=== PATIENT | female | born 1940 | race Caucasian/White ===

== ENCOUNTER → 2016-07-09 | Outpatient (REF) | payer MEDICARE ==
[2016-07-09 16:45] LABS: MEAN CORPUSCULAR HEMOGLOBIN 31.8 pg (27.0-33.0); MEAN CORPUSCULAR HGB CONC 34.9 g/dl (32.0-36.5); MEAN CORPUSCULAR VOLUME 90.9 fl (80.0-96.0); WHITE BLOOD COUNT 5.5 K/mm3 (4.0-10.0)
[2016-07-09 17:06] LABS: ALBUMIN 3.5 GM/DL (3.2-5.2); ALBUMIN/GLOBULIN RATIO 1.13 (1.00-1.93); ALKALINE PHOSPHATASE 82 U/L (45-117); ALT/SGPT 20 U/L (12-78); ANION GAP 7 MEQ/L (8-16); AST/SGOT 14 U/L (15-37); BILIRUBIN,TOTAL 0.4 MG/DL (0.2-1.0); BLOOD UREA NITROGEN 19 MG/DL (7-18); CALCIUM LEVEL 8.3 MG/DL (8.8-10.2); CARBON DIOXIDE LEVEL 29 MEQ/L (21-32); CHLORIDE LEVEL 105 MEQ/L (98-107); CHOLESTEROL LEVEL 195 MG/DL (<200); CREATININE FOR GFR 0.93 MG/DL (0.55-1.02); GLOMERULAR FILTRATION RATE > 60.0 (>39); GLUCOSE, FASTING 83 MG/DL (83-110); POTASSIUM SERUM 3.9 MEQ/L (3.5-5.1); SODIUM LEVEL 141 MEQ/L (136-145); TOTAL PROTEIN 6.6 GM/DL (6.4-8.2); TRIGLYCERIDES LEVEL 169 MG/DL (<150)
== END ==
LOC: M SFHCPLAZ 14:56
PROVIDERS: ATTEND Nurse Practitioner Adult Health
DX: Z00.00 Encounter for general adult medical examination without abnormal findings (principal); Z12.31 Encounter for screening mammogram for malignant neoplasm of breast; Z79.899 Other long term (current) drug therapy

== ENCOUNTER → 2016-08-11 | Outpatient (CLI) | payer MEDICARE ==
--- NOTE | 2016-08-11 14:36 | REPMRS ---
Patient History The patient states she has not had a clinical breast exam in over a year. Patient is postmenopausal and has history of other cancer at age 67. Family history of ovarian cancer in mother, breast cancer in maternal aunt, and breast cancer in paternal aunt. Took estrogen for 3 months. Digital Woman Screen Mammo: August 11, 2016 - Exam #: [id number] Bilateral CC and MLO view(s) were taken. Technologist: Carmencita Carson, Technologist Prior study comparison: October 08, 2014, digital woman screen mammo performed at [facility]. October 07, 2012, digital woman screen mammo performed at [facility] [employer] [facility]. FINDINGS: There are scattered fibroglandular densities. There has been no change in the appearance of the mammogram from the prior studies. There is a mild amount of residual fibroglandular tissue which is fairly symmetric. There is no interval development of dominant mass, architectural distortion, or clustered microcalcification suggestive of malignancy. ASSESSMENT: BI-RADS/ACR category 1 mammogram. Negative. Recommendation Routine screening mammogram in 1 year (for women over age 40). This mammogram was interpreted with the aid of an FDA-approved computer-aided dectection system. Electronically Signed By: Ashish Philip MD 08/11/16 [id number]
== END ==
LOC: M WHC 13:04
PROVIDERS: ATTEND Nurse Practitioner Adult Health
DX: Z12.31 Encounter for screening mammogram for malignant neoplasm of breast (principal); M81.0 Age-related osteoporosis without current pathological fracture; Z78.0 Asymptomatic menopausal state

== ENCOUNTER → 2016-08-18 | Outpatient (REF) | payer MEDICARE | LOC: M LAB REF 16:10 | PROVIDERS: ATTEND Physician Assistant | DX: N39.0 Urinary tract infection, site not specified (principal) ==

== ENCOUNTER → 2017-07-12 | Outpatient (REF) | payer MEDICARE ==
[2017-07-12 18:06] LABS: ALBUMIN 3.7 GM/DL (3.2-5.2); ALBUMIN/GLOBULIN RATIO 1.06 (1.00-1.93); ALKALINE PHOSPHATASE 82 U/L (45-117); ALT/SGPT 19 U/L (12-78); ANION GAP 9 MEQ/L (8-16); AST/SGOT 14 U/L (7-37); BILIRUBIN,TOTAL 0.4 MG/DL (0.2-1.0); BLOOD UREA NITROGEN 14 MG/DL (7-18); CALCIUM LEVEL 8.9 MG/DL (8.8-10.2); CARBON DIOXIDE LEVEL 28 MEQ/L (21-32); CHLORIDE LEVEL 104 MEQ/L (98-107); CHOLESTEROL LEVEL 207 MG/DL (<200); CHOLESTEROL RISK RATIO 3.393 (<5); CREATININE FOR GFR 0.77 MG/DL (0.55-1.30); GLOMERULAR FILTRATION RATE > 60.0 (>39); GLUCOSE, FASTING 78 MG/DL (70-100); HDL CHOLESTEROL 61 MG/DL (>40); LDL CHOLESTEROL 118.8 MG/DL (<100); NON-HDL-C 146 MG/DL; POTASSIUM SERUM 4.5 MEQ/L (3.5-5.1); SODIUM LEVEL 141 MEQ/L (136-145); TOTAL PROTEIN 7.2 GM/DL (6.4-8.2); TRIGLYCERIDES LEVEL 136 MG/DL (<150)
== END ==
LOC: M SFHCPLAZ 16:06
DX: Z00.00 Encounter for general adult medical examination without abnormal findings (principal); I65.23 Occlusion and stenosis of bilateral carotid arteries; Z79.899 Other long term (current) drug therapy
CPT/HCPCS: 84443

== ENCOUNTER → 2017-09-07 | Outpatient (CLI) | payer MEDICARE | LOC: M WHC 14:04 | DX: Z12.31 Encounter for screening mammogram for malignant neoplasm of breast (principal) | CPT/HCPCS: 77067 ==

== ENCOUNTER → 2018-02-18 | Outpatient (REF) | payer MEDICARE ==
[2018-02-18 22:16] LABS: APPEARANCE, URINE CLEAR (CLEAR); BACTERIA, URINE AUTO NEGATIVE (NEGATIVE); BILIRUBIN, URINE AUTO NEGATIVE (NEGATIVE); BLOOD, URINE BLOOD NEGATIVE (NEGATIVE); COLOR, URINE YELLOW (YELLOW); GLUCOSE, URINE (UA) AUTO NEGATIVE (NEGATIVE); KETONE, URINE AUTO NEGATIVE (NEGATIVE); LEUKOCYTE ESTERASE, URINE AUTO TRACE (NEGATIVE); MUCUS, URINE SMALL (NEGATIVE); NITRITE, URINE AUTO NEGATIVE (NEGATIVE); PROTEIN, URINE AUTO NEGATIVE (NEGATIVE); RBC, URINE AUTO 2 /HPF (0-3); SPECIFIC GRAVITY URINE AUTO 1.012 (1.002-1.035); SQUAMOUS EPITHELIAL CELL UR AU 0 /HPF (0-6); UROBILINOGEN, URINE AUTO 0.2 mg/dL (0.0-2.0); WBC, URINE AUTO 2 /HPF (0-3)
== END ==
LOC: M LAB REF 10:18
DX: N39.0 Urinary tract infection, site not specified (principal)
CPT/HCPCS: 81001

== ENCOUNTER 2018-03-03 14:03 | Emergency (ER) | payer MEDICARE ==
[2018-03-03] MEDS: FLUORESCEIN OPHTH 1 MG STRIP OD (15:38)
[2018-03-03] MEDS: TETRACAINE 0.5% OPHTH SOLN 4ML OD (15:38)
== END 2018-03-03 16:08 | disposition home or self-care (01) ==
LOC: M ED 14:03
DX: S05.01XA Injury of conjunctiva and corneal abrasion without foreign body, right eye, initial encounter (principal); Y99.9 Unspecified external cause status
CPT/HCPCS: 99283

== ENCOUNTER → 2018-12-05 | Outpatient (CLI) | payer MEDICARE ==
[~2018-12-05] MED LIST: OFLO3OPSO OD
--- NOTE | 2018-12-05 16:00 | REPMRS ---
Patient History The patient states she has not had a clinical breast exam in over a year. Patient is postmenopausal and has history of other cancer at age 67. Family history of ovarian cancer in mother, breast cancer in maternal aunt, breast cancer in paternal aunt. Took estrogen for 3 months. 3D TOMOSYNTHESIS WAS PERFORMED. The [facility] lifetime risk for breast cancer is 2.7%. Digital Woman Screen Mammo: December 05, 2018 - Exam #: [id number] Bilateral CC and MLO view(s) were taken. Technologist: Muriel Boston Technologist Prior study comparison: September 07, 2017, bilateral digital woman screen mammo performed at [facility]. August 11, 2016, digital woman screen mammo performed at [facility]. FINDINGS: There are scattered fibroglandular densities. There has been no change in the appearance of the mammogram from the prior studies. There is a mild amount of residual fibroglandular tissue which is fairly symmetric. There is no interval development of dominant mass, architectural distortion, or clustered microcalcification suggestive of malignancy. Assessment: BI-RADS/ACR category 1 mammogram. Negative Mammogram. Recommendation Routine screening mammogram in 1 year (for women over age 40). This mammogram was interpreted with the aid of an FDA-approved computer-aided dectection system. Electronically Signed By: Ashish Philip MD 12/05/18 1600
== END ==
LOC: M WHC 13:06
PROVIDERS: ATTEND Nurse Practitioner Adult Health
DX: Z12.31 Encounter for screening mammogram for malignant neoplasm of breast (principal); Z78.0 Asymptomatic menopausal state

== ENCOUNTER → 2018-12-20 | Outpatient (CLI) | payer MEDICARE ==
[~2018-12-20] MED LIST changes: +CALC600T60 PO; +CHOL400T PO; +VITA-55 PO
[2018-12-20 12:03] LABS: HEMOGLOBIN 13.6 g/dl (12.0-15.5); MEAN CORPUSCULAR HEMOGLOBIN 30.2 pg (27.0-33.0); MEAN CORPUSCULAR HGB CONC 33.2 g/dl (32.0-36.5); MEAN CORPUSCULAR VOLUME 91.1 fl (80.0-96.0); PLATELET COUNT, AUTOMATED 248 10^3/uL (150-450); WHITE BLOOD COUNT 4.7 10^3/uL (4.0-10.0)
[2018-12-20 12:11] LABS: INR 1.07; PROTHROMBIN TIME 13.6 SECONDS (11.8-14.0)
[2018-12-20 12:27] LABS: ERYTHROCYTE SEDIMENTATION RATE 11 mm/hr (0-30)
[2018-12-20 12:33] LABS: ALBUMIN 3.6 GM/DL (3.2-5.2); ALT/SGPT 19 U/L (12-78); BILIRUBIN,TOTAL 0.7 MG/DL (0.2-1.0); BLOOD UREA NITROGEN 17 MG/DL (7-18); CALCIUM LEVEL 9.1 MG/DL (8.8-10.2); CARBON DIOXIDE LEVEL 27 MEQ/L (21-32); CHLORIDE LEVEL 103 MEQ/L (98-107); CREATININE FOR GFR 0.89 MG/DL (0.55-1.30); GLOMERULAR FILTRATION RATE > 60.0 (>39); GLUCOSE, FASTING 117 MG/DL (70-100); POTASSIUM SERUM 4.2 MEQ/L (3.5-5.1); SODIUM LEVEL 139 MEQ/L (136-145); TOTAL PROTEIN 6.7 GM/DL (6.4-8.2)
--- NOTE | 2018-12-20 12:39 | REP ---
The PA and lateral chest: There are no comparisons. The lung dejesus are clear. The cardiac size is normal. The rosalva, mediastinum, and skeletal structures are unremarkable. Impression: Negative PA and lateral chest. Electronically Signed by Ashish Ivey MD 12/20/2018 12:30 P
--- NOTE | 2018-12-21 08:25 | ECGEPIP ---
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
== END ==
LOC: M LAB 11:12
PROVIDERS: ATTEND Orthopaedic Surgery
DX: Z01.818 Encounter for other preprocedural examination (principal); M17.12 Unilateral primary osteoarthritis, left knee

== ENCOUNTER 2019-01-02 05:55 | Inpatient (IN) | payer MEDICARE ==
--- NOTE | 2018-12-27 14:51 | HPE ---
DATE OF ADMISSION: 01/02/2019 CHIEF COMPLAINT: Left knee pain and stiffness. ATTENDING PHYSICIAN: Dr. Donis Darling HISTORY: This is a pleasant 78-year-old female patient with progressively worsening left knee pain and stiffness. She has tried physical therapy and numerous injections without improvement of her symptoms. She has pain with weightbearing activities and activities of daily living. She has elected for surgery for continued symptoms. She has been consented by Dr. Darling for the left total knee arthroplasty. X-rays notable for end-stage degenerative changes of the left knee. Medical optimization Dr. Palacio, not present for review today. ALLERGIES: NO KNOWN DRUG ALLERGIES. CURRENT MEDICATIONS: She takes only [id number] supplements daily with vitamin C, vitamin E and calcium with D. Medical conditions include symptomatic osteoarthritis of the left knee and osteoporosis. PAST SURGERIES: Include multiple skin grafts, total hysterectomy and appendectomy. FAMILY HISTORY: Hypertension, cancer, diabetes, coronary artery disease and thyroid disease. REVIEW OF SYSTEMS: Denies any fever or chills. Denies chest pain, shortness breath or cough. Denies difficulty breathing. Denies abdominal pain. Denies nausea or vomiting. Has persistent pain in her knee with weightbearing activities. SOCIAL HISTORY: She does not smoke. She uses alcohol on an occasional basis. PHYSICAL EXAMINATION: Exam today reveals alert, well-nourished, well-developed female patient. She ambulates with a limping gait, favoring the left side. Examination of the left knee reveals tenderness mainly medially. There is patellar grind that is irritable. Stable to varus-valgus stress. Range of motion near full. Calf is soft, nontender to palpation. There are numerous scars consistent with her surgical history of skin grafts. Sensation is intact. Neck is supple without adenopathy or jugular venous distention (JVD). Lungs are clear to auscultation without rales or wheeze. Heart has regular rate and rhythm. Abdomen: Bowel sounds are present. Current height is 59 inches, weight 130 pounds, temperature is 98.6, blood pressure 120/62, respirations 15, pulse is 63. LABORATORY DATA: PT is 13.6, INR 1.07, sed rate 11, WBC count 4.7, RBC count 4.5, hemoglobin 13.6, hematocrit 41.0, glucose 117, BUN 17, creatinine 0.89, sodium 139, potassium 4.2. Chest x-ray: No acute cardiopulmonary process noted. EKG sinus rhythm. IMPRESSION: Symptomatic osteoarthritis of the left knee. PLAN: She is consented by Dr. Darling for a left total knee arthroplasty. She understands no NSAIDs 5 days prior to surgery, nothing to eat after midnight the day before, she will call on Wednesday to confirm her arrival time for Wednesday.
[~2019-01-02] VITALS: Ht 152.4 cm; Wt 62.6 kg
[2019-01-02] VITALS (7 sets, daily range): BP systolic 122–142; BP diastolic 65–85
[2019-01-02] MEDS ORDERED: LIDOCAINE 1% MDV 20ML VIAL SQ PRN (06:00)
[2019-01-02] MEDS ORDERED: ceFAZolin SOD 2 GM in IV 1 EA IV ONE (07:00)
[2019-01-02] MEDS ORDERED: LR 1,000 ML IV ONE (07:00)
[2019-01-02] MEDS ORDERED: ACETAMINOPHEN 500 MG TAB PO ONE (07:00)
[2019-01-02] MEDS ORDERED: TRANEXAMIC ACID 100 MG/ML 10ML VIAL As Ordered ONE (07:02)
[2019-01-02] MEDS ORDERED: BUPIVACAINE HCL 0.25% 10 ML VIAL As Ordered ONE (07:02)
[2019-01-02] MEDS ORDERED: ceFAZolin 1GM INJ (J0690 PER 500MG) As Ordered ONE (07:02)
[2019-01-02] MEDS ORDERED: EPINEPHrine INJ 1 MG/ML 1ML AMP As Ordered ONE (07:03)
[2019-01-02] MEDS ORDERED: BUPIVACAINE LIPOSOME/PF 1.3% 20ML VIAL (13.3MG/ML)(EXPAREL)(C9290 PER1MG) As Ordered ONE (07:03)
[2019-01-02] MEDS ORDERED: MIDAZOLAM INJ 2 MG/2 ML VIAL (J2250) As Ordered ONE (07:12)
[2019-01-02] MEDS ORDERED: fentaNYL 100 MCG/2 ML INJECTION (J3010) As Ordered ONE ×3 (07:12→09:39)
[2019-01-02] MEDS ORDERED: PROPOFOL 500 MG/50 ML VIAL As Ordered ONE (07:15)
[2019-01-02] MEDS ORDERED: LIDOCAINE 2% INJ 100 MG/5 ML SDV (FOR ANES.) As Ordered ONE (07:16)
[2019-01-02] MEDS ORDERED: dexameTHASONE 4 MG/ML 1ML VIAL (J1100) As Ordered ONE (07:16)
[2019-01-02] MEDS: MIDAZOLAM INJ 2 MG/2 ML VIAL (J2250) IV SCH ×2 (07:19→07:20)
[2019-01-02] MEDS ORDERED: ONDANSETRON 4MG/2ML VIAL (J2405) As Ordered ONE ×2 (08:23→09:39)
[2019-01-02] MEDS: fentaNYL 100 MCG/2 ML INJECTION (J3010) IV PRN ×4 (09:40→09:55)
[2019-01-02] MEDS ORDERED: ACETAMINOPHEN TAB 650MG DOSE (2X325MG) PO PRN (10:00)
[2019-01-02] MEDS ORDERED: FLEET ENEMA PR PRN (10:00)
[2019-01-02] MEDS ORDERED: ONDANSETRON 4MG/2ML VIAL (J2405) IV PRN (10:00)
[2019-01-02] MEDS ORDERED: fentaNYL 100 MCG/2 ML INJECTION (J3010) IV SCH (10:00)
[2019-01-02] MEDS ORDERED: LR 1,000 ML IV SCH ×2 (10:00)
[2019-01-02] MEDS ORDERED: MORPHINE 10 MG/ML 1ML VIAL (J2270) IV PRN (10:00)
[2019-01-02] MEDS ORDERED: HYDROMORPHONE HCL 0.5 MG/ 0.5 ML SYRINGE (J1170 PER 1) IV PRN ×2 (10:15)
--- NOTE | 2019-01-02 10:33 | CR.PDOC ---
General Date of Consultation: Jan 02, 2019 Consultation CONSULT FOR: Orthopedic surgery REASON FOR CONSULT: Medical management HISTORY OF PRESENT ILLNESS: This is a 78-year-old female with minimal past medical history who presents for elective left total knee arthroplasty following failing outpatient management and continued pain without improvement. She is at her risk stratification and preoperative crit work completed at outside provider. She never followed Jennie Thacker. At this time the patient tells me she does not feel well at all she is examined in the PACU telemetry that she has no pain and she is doing quite well. She tells me she only takes her supplements and takes no prescription medications. Otherwise patient denies weight loss, hair loss, headache, visual changes, chest pain, shortness of breath, cough, nausea, vomiting, diarrhea, abdominal pain, muscle aches, worsening arthritis, change in mood PAST MEDICAL HISTORY: 1 diverticulosis. 2 osteoporosis. 3 chronic constipation 4 osteoarthritis. HOME MEDICATIONS: Please see below. ALLERGIES: Please see below PAST SURGICAL HISTORY: 1 hysterectomy. 2 skin graft to her back. 3 appendectomy 4 bilateral cataract extraction 5 appendectomy 6 colonoscopy 7 left arm skin biopsy. SOCIAL HISTORY: Lives with: , Employment: Not currently working, Tobacco use: Denies. ETOH: Denies, Illicit drug use: Denies, CODE STATUS: DNR/DNI with limited medical interventions FAMILY HISTORY:Reviewed and noncontributory REVIEW OF SYSTEMS: 10 systems reviewed and negative other than HPI PHYSICAL EXAMINATION: VITAL SIGNS: Please see below GENERAL: Pleasant elderly female sitting up in bed awake alert oriented speaking in complete sentences no acute distress HEENT: Moist mucous membranes no elevation in CVP CARDIOVASCULAR: S1 S2 regular no additional heart sounds appreciated. RESPIRATORY: Clear to auscultation bilaterally. ABDOMINAL: Bowel sounds present abdomen soft and nontender EXTREMITIES: No clubbing cyanosis or edema, left knee is Issac wrapped bandage to NEUROLOGICAL: Spontaneously moves 3/4 extremities cranial 2 through 12 grossly intact no gross focal deficits appreciated PSYCHOLOGICAL: Appropriate LABORATORY DATA: See below. MICROBIOLOGY: Please see below. IMAGING: Left knee plain film report pending ASSESSMENT & PLAN: This is a 78-year-old female postop day 0 for elective left total knee arthroplasty. PROBLEMS: 1 left total knee arthroplasty: Perioperative management as per orthopedic surgery. We'll defer to them regarding DVT prophylaxis pain control physical therapy. 2 osteoporosis: Restart calcium and vitamin D supplementation is able 3 chronic constipation: She is being provided with a bowel regimen by orthopedic surgery 4. Nutritional supplements: Okay to hold while hospitalized her vitamin E and C DVT PROPHYLAXIS: As per thoracic surgery Thank you for this interesting consult, we will continue to follow along with you. Please Vocera secure text or call with any specific questions. This note was generated in part or whole with a voice recognition software. Vo ice recognition is usually quite accurate but often erros do occur. I apologize for any typographical errors that were not detected and corrected. Vital Signs/I&O Vital Signs Date Time Temp Pulse Resp B/P (MAP) Pulse Ox O2 Delivery O2 Flow Rate FiO2 01/02/19 10:05 56 16 136/81 (99) 96 Room Air 01/02/19 10:01 97.1 01/02/19 07:15 2 Allergies Coded Allergies: No Known Allergies (Unverified , 12/21/18) Home Medications Scheduled Calcium Carbonate (Calcium) 600 Mg Tablet, 600 MG PO DAILY, (Reported) Cholecalciferol (Vitamin D3) (Vitamin D3) 400 Unit Tablet, 400 UNIT PO DAILY, (Reported) Vitamin E (Dl,Tocopheryl Acet) (Vitamin E) 400 Unit Capsule, 400 UNIT PO DAILY, (Reported) GISELLA JANG MD Jan 02, 2019 10:33
--- NOTE | 2019-01-02 10:45 | REP ---
LEFT KNEE, TWO VIEWS: Two views of the left knee performed. There is placement of a total knee prosthesis. Prosthetic components are in good position. The osseous structures are intact and well-aligned. Metallic skin ninfa are seen anterior. Electronically Signed by Ashish Philip MD 01/03/2019 05:31 P
[2019-01-02] MEDS: ceFAZolin SOD 2 GM in IV 1 EA IV SCH ×2 (13:34→19:53)
[2019-01-02] MEDS ORDERED: PERCOCET 5MG/325MG TAB PO PRN (14:15)
[2019-01-02] MEDS ORDERED: LIDOCAINE 1% MDV 20ML VIAL ONE (14:31)
[2019-01-02] MEDS ORDERED: ROPIvacaine 0.5% 30 ML INJECTION (J2795 PER 1MG) ONE (14:31)
[2019-01-02] MEDS ORDERED: dexameTHASONE 10 MG/1 ML VIAL PRES.FREE (J1100) ONE (14:31)
--- NOTE | 2019-01-02 16:29 | RO ---
DATE OF PROCEDURE: 01/02/2019 PREPROCEDURE DIAGNOSIS: Left knee degenerative arthritis. POSTPROCEDURE DIAGNOSIS: Left knee degenerative arthritis. PROCEDURE: Left total knee arthroplasty using a size 4 Attune cemented cruciate-retaining femoral component and a size 4 tibial tray with an 8 mm rotating platform polyethylene insert and a 32 mm polyethylene button. SURGEON: Dr. Kasey Darling SEED PRODUCTION FIELD SUPERVISOR: Ms. Sujata Briones ANESTHESIA: Spinal with left femoral nerve block. The prosthesis was made by [employer]; it was Attune knee. COMPLICATIONS: None. SPECIMENS: Joint surface. DESCRIPTION OF PROCEDURE: Antibiotics were given intravenously preoperatively and successful, left femoral nerve block, and then spinal anesthetic was induced. Tourniquet placed on the left upper thigh and not inflated. The left lower extremity was carefully prepped and draped in the usual sterile fashion, leg elevated, and then the tourniquet inflated after appropriate time out. A longitudinal incision was made for a medial parapatellar approach to the knee. Bovie cautery was used to coagulate crossing vessels. Medial parapatellar arthrotomy performed, subperiosteal dissection around the proximal, medial and lateral tibial plateau was performed and then the knee was flexed. Drill placed down the center of the femoral canal, followed by the intramedullary mica and the distal femoral cutting jig set at 9 mm resection level, 5 degree valgus for a left knee. It was pinned into position. Distal femoral cut performed. AP sizing jig measured for a size 4, 3 degrees external rotation dialed in, pins placed, 4-in-1 block applied. Anterior, posterior, chamfer cuts performed, the jig for the sulcus osteotomy was applied and the sulcus osteotomy performed. We then exposed the proximal tibia and used the extramedullary alignment jig to estimate being parallel to the mechanical axis of the tibia, referencing off the medial tibial condyle at 4 mm resection level. The block was pinned into position, then the extramedullary mica was used to confirm that we appeared to be parallel to the mechanical axis. Thus, the proximal tibial osteotomy was performed. The lamina cook specialty foreign food was then placed laterally, and we performed a completion medial meniscectomy and debridement of the posteromedial osteophytes. We then placed the lamina cook specialty foreign food medially and performed a completion lateral meniscectomy and debridement of the posterolateral osteophytes. We then used several spacer blocks, and the 8 mm seemed to give her the best stability symmetrically both in flexion and extension to varus/valgus stress testing. We then exposed the proximal tibia and sized for a #4 tray, which was pinned into position, followed by the reamer and the broach. Trial was placed. Trial femoral component was placed. We brought the knee into extension, everted the patella, performed a patellar osteotomy, sized for a 32 button. Lug holes drilled, trial placed, patellofemoral tracking was anatomic. We then drilled the lug holes for the femur, removed all of the trial components, copiously pulsatile lavage irrigated out the knee joint and then placed Exparel in the subperiosteal tissues around the proximal tibia and the distal femur. At this point, Dominique Sujata Briones mixed the cement on the back table as I prepared the bony surfaces for cementing with a copious amount of pulsatile lavage irrigant solution. She was critical to the success of this surgery by helping with appropriate soft tissue retraction, helped to mix the cement, and helped to prepare the patient for surgery, helped to close the wound amongst many other tasks. Once the cement had been mixed, we then cemented the tibial tray, removed excess cement, placed the polyethylene, cemented the femoral component, removed excess cement, brought the knee into extension, and then cemented the patellar button, removed excess cement and held it with a clamp until the cement hardened, the knee in extension. And as we were awaiting the cement to harden, we copiously irrigated out the knee joint once again and then placed tranexamic acid in the knee joint, then closed the apex of the arthrotomy with two #1 PDS sutures, the medial parapatellar area was closed with #1 PDS suture, then a double-armed #1 Stratafix was used in a running fashion to close the capsule. Tourniquet was then released. We copiously irrigated again and closed the deep subdermal tissues with interrupted #2-0 PDS suture, skin was closed with ninfa, covered by Optifoam and a dry sterile bulky dressing. She was then transferred to the recovery room in stable condition. There were no intraoperative complications.
[2019-01-02] MEDS: PERCOCET 5MG/325MG TAB PO PRN (22:32)
[2019-01-03] MEDS: ceFAZolin SOD 2 GM in IV 1 EA IV SCH (02:00)
[2019-01-03 02:25] VITALS: BP 116/64
[2019-01-03] MEDS: PERCOCET 5MG/325MG TAB PO PRN ×3 (02:54→14:26)
[2019-01-03 06:15] VITALS: BP 146/85
[2019-01-03 06:22] LABS: HEMATOCRIT 30.4 % (36.0-47.0); HEMOGLOBIN 9.9 g/dl (12.0-15.5); MEAN CORPUSCULAR HEMOGLOBIN 29.7 pg (27.0-33.0); MEAN CORPUSCULAR HGB CONC 32.6 g/dl (32.0-36.5); MEAN CORPUSCULAR VOLUME 91.3 fl (80.0-96.0); PLATELET COUNT, AUTOMATED 210 10^3/uL (150-450); RED BLOOD COUNT 3.33 10^6/uL (4.00-5.40); WHITE BLOOD COUNT 9.7 10^3/uL (4.0-10.0)
[2019-01-03] MEDS ORDERED: XARE10TA PO (07:06)
[2019-01-03] MEDS ORDERED: PERC5TAB12 PO (07:06)
[2019-01-03] MEDS: ONDANSETRON 4MG/2ML VIAL (J2405) IV PRN ×2 (09:04→19:38)
[2019-01-03] MEDS: MIRALAX *UNIT DOSE* 17GM PACKET PO SCH (09:04)
[2019-01-03] MEDS: MOM 30ML SUSPENSION UDC PO SCH (09:04)
[2019-01-03] MEDS: SENOKOT S TAB PO SCH (09:04)
[2019-01-03 10:00] VITALS: BP 116/69
[2019-01-03 14:00] VITALS: BP 125/68
--- NOTE | 2019-01-03 14:55 | IPNPDOC ---
Text Note Date of Service The patient was seen on 01/03/19. NOTE Subjective: This is a 78-year-old female with minimal past medical history who presents for elective left total knee arthroplasty following failing outpatient management and continued pain without improvement. She is at her risk stratification and preoperative clearance work completed at outside provider. Hospital services consult for medical management. Patient was seen and examined at the bedside. Patient reports that she has been up out of bed, but still reports some knee pain. Patient denies any chest pain, shortness of breath or palpitations. He denies any diarrhea or urinary discomfort. Objective: Vitals (See below) General: Lying in bed, no acute distress, comfortable, AAOx3 HEENT: NC, AT CVS: RRR, +S1S2 Lungs: Fair air entry b/l, -w/r/r Abdomen: Soft, ND, NT Extremities: - Edema, - Calf tenderness, L knee with dressing in place Assessment and plan: Left total knee arthroplasty: Perioperative management as per orthopedic surgery (POD#1) - DVT prophylaxis pain control physical therapy. - c/w PT / OT Chronic constipation - As per elle; regimen as per orthopedic surgery Nutritional supplements - Holding Vitamin E / C DVT prophylaxis - As per orthopedic surgery VS,Fishbone, I+O VS, Fishbone, I+O Laboratory Tests 01/03/19 05:52 Vital Signs Date Time Temp Pulse Resp B/P (MAP) Pulse Ox O2 Delivery O2 Flow Rate FiO2 01/03/19 14:26 18 Room Air 01/03/19 10:00 97.5 70 116/69 (85) 94 01/02/19 07:15 2 I&O- Last 24 Hours up to 6 AM 01/03/19 06:00 Intake Total 3705 ml Output Total 1270 ml Balance 2435 ml MEREDITH ESTRADA MD Jan 03, 2019 14:55
[2019-01-03] MEDS ORDERED: MORPHINE 15 MG SA TAB PO SCH (17:30)
[2019-01-03] MEDS: RIVAROXABAN 10 MG TAB (XARELTO) PO SCH (18:10)
[2019-01-03 22:00] VITALS: BP 125/70
[2019-01-04] MEDS: PERCOCET 5MG/325MG TAB PO PRN (04:29)
[2019-01-04 06:00] VITALS: BP 126/78
[2019-01-04 06:28] LABS: HEMATOCRIT 27.9 % (36.0-47.0); HEMOGLOBIN 9.3 g/dl (12.0-15.5); MEAN CORPUSCULAR HEMOGLOBIN 30.7 pg (27.0-33.0); MEAN CORPUSCULAR HGB CONC 33.3 g/dl (32.0-36.5); MEAN CORPUSCULAR VOLUME 92.1 fl (80.0-96.0); PLATELET COUNT, AUTOMATED 182 10^3/uL (150-450); RED BLOOD COUNT 3.03 10^6/uL (4.00-5.40); WHITE BLOOD COUNT 7.2 10^3/uL (4.0-10.0)
[2019-01-04] MEDS: MOM 30ML SUSPENSION UDC PO SCH (08:49)
[2019-01-04] MEDS: METOCLOPRAMIDE 5 MG TAB PO SCH ×4 (08:49→22:04)
[2019-01-04] MEDS: MIRALAX *UNIT DOSE* 17GM PACKET PO SCH (08:49)
[2019-01-04] MEDS: SENOKOT S TAB PO SCH (08:49)
[2019-01-04] MEDS: traMADol 50 MG TAB PO PRN ×2 (09:34→17:48)
[2019-01-04] MEDS: ACETAMINOPHEN 500 MG TAB PO SCH ×3 (10:03→22:04)
[2019-01-04 11:23] LABS: BLOOD UREA NITROGEN 15 MG/DL (7-18); CALCIUM LEVEL 8.3 MG/DL (8.8-10.2); CARBON DIOXIDE LEVEL 28 MEQ/L (21-32); CHLORIDE LEVEL 102 MEQ/L (98-107); CREATININE FOR GFR 0.79 MG/DL (0.55-1.30); GLOMERULAR FILTRATION RATE > 60.0 (>39); GLUCOSE, FASTING 110 MG/DL (70-100); SODIUM LEVEL 136 MEQ/L (136-145)
[2019-01-04] MEDS ORDERED: PREVNAR 13 VACCINE SYRINGE (CPT CODE:90670) IM ONE (13:00)
[2019-01-04] MEDS ORDERED: FLUBLOK(EGG FREE)(QUAD)INFLUENZA VACC 0.5ML SYRINGE (90682)18YRS&OLDER IM ONE (13:00)
--- NOTE | 2019-01-04 13:30 | IPNPDOC ---
Text Note Date of Service The patient was seen on 01/04/19. NOTE Subjective: This is a 78-year-old female with minimal past medical history who presents for elective left total knee arthroplasty following failing outpatient management and continued pain without improvement. She is at her risk stratification and preoperative clearance work completed at outside provider. Hospital services consult for medical management. Patient was seen and examined at the bedside. Patient has worked well with physical therapy, however, still requiring some assistance. Patient is being looked at by [facility] for subacute rehabilitation. Currently patient denies any chest pain, shortness of breath or palpitations. She does report mild pain of her knee. Denies any abdominal pain or urinary discomfort. Objective: Vitals (See below) General: Lying in bed, no acute distress, comfortable, AAOx3 HEENT: NC, AT CVS: RRR, +S1S2 Lungs: Fair air entry b/l, auscultation is free of any rhonchi, rales or whe ezing Abdomen: Soft, remains nondistended and nontender Extremities: No appreciable lower extremity edema, - Calf tenderness, left lower extremity/ knee with dressing in place Assessment and plan: Left total knee arthroplasty: Perioperative management as per orthopedic surgery (POD#2) - DVT prophylaxis pain control physical therapy. - c/w PT / OT; anticipate that patient will be transition to subacute rehabilitation at [facility] within the next 24 hours Chronic constipation - As per elle; regimen as per orthopedic surgery Nutritional supplements - Holding Vitamin E / C DVT prophylaxis - As per orthopedic surgery Disposition: - Transition to subacute rehabilitation VS,Lisa, I+O VS, Lisa, I+O Laboratory Tests 01/04/19 06:04 01/04/19 10:44 Vital Signs Date Time Temp Pulse Resp B/P (MAP) Pulse Ox O2 Delivery O2 Flow Rate FiO2 01/04/19 10:04 16 01/04/19 06:00 97.6 81 126/78 (94) 96 Room Air 01/02/19 07:15 2 I&O- Last 24 Hours up to 6 AM 01/04/19 06:00 Intake Total 1150 ml Output Total 900 ml Balance 250 ml MEREDITH ESTRADA MD Jan 04, 2019 13:30
[2019-01-04 14:00] VITALS: BP 113/61
[2019-01-04] MEDS: RIVAROXABAN 10 MG TAB (XARELTO) PO SCH (17:47)
[2019-01-04 22:00] VITALS: BP 118/81
[2019-01-05 05:57] LABS: HEMATOCRIT 27.7 % (36.0-47.0); HEMOGLOBIN 8.9 g/dl (12.0-15.5); MEAN CORPUSCULAR HEMOGLOBIN 30.1 pg (27.0-33.0); MEAN CORPUSCULAR HGB CONC 32.1 g/dl (32.0-36.5); MEAN CORPUSCULAR VOLUME 93.6 fl (80.0-96.0); PLATELET COUNT, AUTOMATED 183 10^3/uL (150-450); RED BLOOD COUNT 2.96 10^6/uL (4.00-5.40); WHITE BLOOD COUNT 5.9 10^3/uL (4.0-10.0)
[2019-01-05] MEDS: ACETAMINOPHEN 500 MG TAB PO SCH ×3 (05:58→21:20)
[2019-01-05 06:00] VITALS: BP 120/79
[2019-01-05] MEDS ORDERED: XARE10TA PO (07:43)
[2019-01-05] MEDS ORDERED: MAGNESIUM CITRATE 300 ML BTL PO ONE (08:00)
[2019-01-05] MEDS: MIRALAX *UNIT DOSE* 17GM PACKET PO SCH (08:35)
[2019-01-05] MEDS: traMADol 50 MG TAB PO PRN ×2 (08:35→17:28)
[2019-01-05] MEDS: METOCLOPRAMIDE 5 MG TAB PO SCH ×4 (08:35→21:20)
[2019-01-05] MEDS: SENOKOT S TAB PO SCH (08:35)
[2019-01-05] MEDS: MOM 30ML SUSPENSION UDC PO SCH (08:35)
--- NOTE | 2019-01-05 10:44 | IPNPDOC ---
Text Note Date of Service The patient was seen on 01/05/19. NOTE Subjective: This is a 78-year-old female with minimal past medical history who presents for elective left total knee arthroplasty following failing outpatient management and continued pain without improvement. She is at her risk stratification and preoperative clearance work completed at outside provider. Hospital services consult for medical management. Patient was seen and examined at the bedside. Has progressed with physical therapy, and does not appear to require JONATAN. She denies any CP, SOB or palpitations. Objective: Vitals (See below) General: Lying in bed, no acute distress, comfortable, AAOx3 HEENT: NC, AT CVS: RRR, +S1S2 Lungs: Air entry is fair bilaterally without evidence of rhonchi, rales, wheezing Abdomen: Remains soft, without any distention or tenderness upon palpation Extremities: There is no calf tenderness. No edema. Left knee with dressing noted Assessment and plan: Left total knee arthroplasty: Perioperative management as per orthopedic surgery (POD#3) - DVT prophylaxis pain control physical therapy. - c/w PT / OT - Patient may be transition to subacute rehabilitation soon versus home with services Chronic constipation - c/w bowel regimen as per orthopedic surgery Nutritional supplements - Holding Vitamin E / C DVT prophylaxis - As per orthopedic surgery Disposition: - Transition to subacute rehabilitation vs. home with services VSLisa, I+O VSLisa I+O Laboratory Tests 01/04/19 10:44 01/05/19 05:36 Vital Signs Date Time Temp Pulse Resp B/P (MAP) Pulse Ox O2 Delivery O2 Flow Rate FiO2 01/05/19 09:05 18 01/05/19 06:00 98.6 84 120/79 (93) 93 Room Air 01/02/19 07:15 2 I&O- Last 24 Hours up to 6 AM 01/05/19 06:00 Intake Total 1590 ml Output Total 1450 ml Balance 140 ml MEREDITH ESTRADA MD Jan 05, 2019 10:44
[2019-01-05 14:00] VITALS: BP 118/78
[2019-01-05] MEDS: RIVAROXABAN 10 MG TAB (XARELTO) PO SCH (17:28)
[2019-01-05 22:00] VITALS: BP 118/77
[2019-01-06] MEDS: traMADol 50 MG TAB PO PRN (00:58)
[2019-01-06] MEDS: ACETAMINOPHEN 500 MG TAB PO SCH ×2 (05:27→13:13)
[2019-01-06 06:46] VITALS: BP 136/54
[2019-01-06] MEDS: MOM 30ML SUSPENSION UDC PO SCH (08:04)
[2019-01-06] MEDS: METOCLOPRAMIDE 5 MG TAB PO SCH ×2 (08:04→13:13)
[2019-01-06] MEDS: SENOKOT S TAB PO SCH (08:04)
[2019-01-06] MEDS: MIRALAX *UNIT DOSE* 17GM PACKET PO SCH (08:04)
--- NOTE | 2019-01-06 10:36 | IPNPDOC ---
Text Note Date of Service The patient was seen on 01/06/19. NOTE Subjective: This is a 78-year-old female with minimal past medical history who presents for elective left total knee arthroplasty following failing outpatient management and continued pain without improvement. She is at her risk stratification and preoperative clearance work completed at outside provider. Hospital services consult for medical management. Patient was seen and examined at the bedside. Has not reported any events overnight. Has progressed with PT. Denies abdominal pain, and has reported bowel movements. Denies any CP, SOB or palpitations. Objective: Vitals (See below) General: Lying in bed, no acute distress, comfortable, AAOx3 HEENT: NC, AT CVS: RRR, +S1S2 Lungs: appears to have fair entry b/l, without auscultated rhonchi / wheezing / crackles Abdomen: Soft, no distension noted, no tenderness on palpation Extremities: no appreciable edema or calf tenderness Assessment and plan: Left total knee arthroplasty: Perioperative management as per orthopedic surgery (POD#4) - DVT prophylaxis pain control physical therapy - c/w PT / OT - Patient will go going home today with services Chronic constipation - Has had bowel movements yesterday - c/w bowel regimen as per orthopedic surgery Nutritional supplements - Holding Vitamin E / C DVT prophylaxis - As per orthopedic surgery Disposition: - Discharge today; with home services VS,Lisa, I+O VS, Lisa, I+O Vital Signs Date Time Temp Pulse Resp B/P (MAP) Pulse Ox O2 Delivery O2 Flow Rate FiO2 01/06/19 06:46 97.6 67 18 136/54 (81) 97 Room Air 01/02/19 07:15 2 I&O- Last 24 Hours up to 6 AM 01/06/19 06:00 Intake Total 1920 ml Balance 1920 ml MEREDITH ESTRADA MD Jan 06, 2019 10:36
--- NOTE | 2019-01-10 10:15 | DSES ---
DATE OF ADMISSION: 01/02/2019 DATE OF DISCHARGE: 01/06/2019 ADMISSION DIAGNOSIS: Osteoarthritis left knee. OTHER DIAGNOSES: 1. Chronic constipation. 2. Osteoporosis. DISCHARGE DIAGNOSIS: Osteoarthritis left knee status post left total knee arthroplasty. ATTENDING PHYSICIAN: Dr. Donis Darling HISTORY: This is a 78-year-old female patient with progressively worsening left knee pain and stiffness. She failed to improve with conservative management. She was admitted for elective knee replacement on the left side. OPERATION PERFORMED: Left total knee arthroplasty. HOSPITAL COURSE: The patient was admitted on day of surgery and underwent a left total knee arthroplasty which was uneventful. During the postoperative period, she did struggle with the postoperative requirements of physical therapy and her discharge was delayed due to her continued need for further physical therapy. On the day of discharge, she was doing well, weightbearing as tolerated on her left lower extremity. She will use oral pain medications for pain control. She will resume her preoperative medications and diet. She was given instructions to include, but not limited to wound monitoring and activity limitations. She will use thromboembolic deterrent (SANDRA) stockings for 30 days postoperative for deep vein thrombosis (DVT) prophylaxis. She will also use Xarelto for DVT prophylaxis per the protocol of 10 mg. She will follow up in our office in 10-14 days for surgical followup. Please refer to the medical record for further details.
== END 2019-01-06 15:30 | disposition home health service (06) | DRG 470 ==
LOC: M OR 05:55 → M MS5PR 10:55
PROVIDERS: ADMIT Orthopaedic Surgery; ATTEND Orthopaedic Surgery
PROC: 0SRD0J9 Replacement of Left Knee Joint with Synthetic Substitute, Cemented, Open Approach (ICD-10-PCS; principal; 2019-01-02 07:30)
DX: M17.12 Unilateral primary osteoarthritis, left knee (principal); K57.30 Diverticulosis of large intestine without perforation or abscess without bleeding; K59.00 Constipation, unspecified; M81.0 Age-related osteoporosis without current pathological fracture; Z66 Do not resuscitate; Z79.899 Other long term (current) drug therapy

== ENCOUNTER → 2019-12-20 | Outpatient (CLI) | payer MEDICARE ==
[~2019-12-20] MED LIST changes: +PERC5TAB12 PO; +XARE10TA PO
--- NOTE | 2019-12-25 14:40 | REP ---
DUPLEX CAROTID SONOGRAPHY HISTORY: Bilateral carotid artery stenosis. Asymptomatic. COMPARISON: Sonography 11/21/2014. SONOGRAPHIC FINDINGS: Antegrade flow is again noted in both vertebral arteries. RIGHT CAROTID: The right common carotid artery shows minimal diffuse intimal thickening. There is [id number] mixed plaquing in the bulb, proximal internal carotid artery (ICA), and proximal external carotid artery (ECA) on the right side on two- dimensional scanning similar to the prior study. Color flow and spectral Doppler interrogation is unremarkable on the right. Velocities have not increased. VELOCITY CHART RIGHT CAROTID PSV EDV CCA 80 cm/s ICA 61 cm/s 24 cm/s ECA 76 cm/s ICA/CCA ratio 0.8 (normal) IMPRESSION: Less than 50% category narrowing in the right internal carotid artery (ICA) by Doppler velocity criteria. Velocities have not increased since the prior study. LEFT CAROTID: The left common carotid artery shows minimal diffuse intimal thickening. There is [id number] mixed plaquing of the bulb, proximal internal carotid artery (ICA), and proximal external carotid artery (ECA) on the left side. Pulse Doppler waveforms and velocities are unremarkable and unchanged. VELOCITY CHART LEFT CAROTID PSV EDV CCA 54 cm/s ICA 71 cm/s 32 cm/s ECA 56 cm/s ICA/CCA ratio 1.3 (normal) IMPRESSION: Less than 50% category narrowing in the left internal carotid artery (ICA) by Doppler velocity criteria. Doppler velocities have not increased since the prior study. MTDD
== END ==
LOC: M RAD 09:39
PROVIDERS: ATTEND Nurse Practitioner Adult Health
DX: I65.23 Occlusion and stenosis of bilateral carotid arteries (principal)

== ENCOUNTER → 2019-12-21 | Outpatient (REF) | payer MEDICARE ==
[2019-12-21 14:37] LABS: ALBUMIN 3.7 GM/DL (3.2-5.2); ALT/SGPT 20 U/L (12-78); BILIRUBIN,TOTAL 0.4 MG/DL (0.2-1.0); BLOOD UREA NITROGEN 18 MG/DL (7-18); CALCIUM LEVEL 9.3 MG/DL (8.8-10.2); CARBON DIOXIDE LEVEL 29 MEQ/L (21-32); CHLORIDE LEVEL 105 MEQ/L (98-107); CHOLESTEROL LEVEL 224 MG/DL (<200); CHOLESTEROL RISK RATIO 3.027 (<5); CREATININE FOR GFR 0.78 MG/DL (0.55-1.30); GLOMERULAR FILTRATION RATE > 60.0 (>32); GLUCOSE, FASTING 91 MG/DL (70-100); HDL CHOLESTEROL 74 MG/DL (>40); LDL CHOLESTEROL 133 MG/DL (<100); NON-HDL-C 150 MG/DL; POTASSIUM SERUM 4.2 MEQ/L (3.5-5.1); SODIUM LEVEL 139 MEQ/L (136-145); TRIGLYCERIDES LEVEL 83 MG/DL (<150)
[2019-12-21 14:57] LABS: HEMOGLOBIN A1c 5.1 %
== END ==
LOC: M SFHCPLAZ 10:59
PROVIDERS: ATTEND Nurse Practitioner Adult Health
DX: Z00.00 Encounter for general adult medical examination without abnormal findings (principal); I65.23 Occlusion and stenosis of bilateral carotid arteries; Z13.1 Encounter for screening for diabetes mellitus; E07.9 Disorder of thyroid, unspecified

== ENCOUNTER 2020-01-12 08:45 | Emergency (ER) | payer MEDICARE ==
[~2020-01-12] VITALS: Ht 157.5 cm; Wt 63.4 kg
--- NOTE | 2020-01-12 09:55 | REP ---
INDICATION: constipation r/o obstruction. COMPARISON: None. TECHNIQUE: Single-view. FINDINGS: Bowel gas pattern is unremarkable with air and stool in a nondistended colon. No small bowel dilation is seen. Flank stripes are intact. Left psoas margin is obscured by bowel gas. Right psoas margin is intact. There is a mild dextroconvex curvature in the lumbar spine. No acute bony abnormality is seen. IMPRESSION: Unremarkable KUB. No evidence of obstruction or obstipation radiographically. <Electronically signed by Ismael Vuong > 01/12/20 [id number]
[2020-01-12 10:10] LABS: BASO % 0.2 % (0.0-1.0); EOS # 0.1 10^3/uL (0.0-0.5); EOS % 0.9 % (0.0-3.0); HEMOGLOBIN 13.8 g/dl (12.0-15.5); LYMPH # 1.1 10^3/uL (1.5-5.0); LYMPH % 12.4 % (24.0-44.0); MEAN CORPUSCULAR HEMOGLOBIN 29.5 pg (27.0-33.0); MEAN CORPUSCULAR HGB CONC 32.1 g/dl (32.0-36.5); MEAN CORPUSCULAR VOLUME 91.9 fl (80.0-96.0); MONO # 0.6 10^3/uL (0.0-0.8); MONO % 6.9 % (0.0-5.0); NEUTROPHILS % 79.3 % (36.0-66.0); PLATELET COUNT, AUTOMATED 268 10^3/uL (150-450); RED BLOOD COUNT 4.68 10^6/uL (4.00-5.40); WHITE BLOOD COUNT 8.8 10^3/uL (4.0-10.0)
[2020-01-12 10:38] LABS: ALBUMIN 3.8 GM/DL (3.2-5.2); BILIRUBIN,DIRECT 0.1 MG/DL (0.0-0.2); BILIRUBIN,TOTAL 0.4 MG/DL (0.2-1.0); TOTAL PROTEIN 6.9 GM/DL (6.4-8.2)
[2020-01-12] MEDS: FLEET ENEMA PR ONE ×2 (11:27→11:30)
[2020-01-12] MEDS ORDERED: COLA100C5 PO (11:33)
[2020-01-12 11:48] VITALS: BP 117/60
== END 2020-01-12 12:00 | disposition home or self-care (01) ==
LOC: M ED 08:45
DX: K92.1 Melena (principal); K59.00 Constipation, unspecified; K64.9 Unspecified hemorrhoids; Z79.899 Other long term (current) drug therapy

== ENCOUNTER → 2021-08-04 | Outpatient (CLI) | payer MEDICARE ==
[~2021-08-04] MED LIST changes: +COLA100C5 PO
[2021-08-04 10:31] LABS: HEMOGLOBIN A1c 5.4 %
[2021-08-04 12:04] LABS: ALBUMIN 3.7 GM/DL (3.2-5.2); ALT/SGPT 18 U/L (12-78); BILIRUBIN,TOTAL 0.5 MG/DL (0.2-1.0); BLOOD UREA NITROGEN 13 MG/DL (7-18); CARBON DIOXIDE LEVEL 30 MEQ/L (21-32); CHLORIDE LEVEL 105 MEQ/L (98-107); CHOLESTEROL LEVEL 212 MG/DL (<200); CHOLESTEROL RISK RATIO 3.028 (<5); GLOMERULAR FILTRATION RATE > 60.0 (>32); GLUCOSE, FASTING 97 MG/DL (70-100); HDL CHOLESTEROL 70 MG/DL (>40); LDL CHOLESTEROL 124 MG/DL (<100); NON-HDL-C 142 MG/DL; POTASSIUM SERUM 4.3 MEQ/L (3.5-5.1); SODIUM LEVEL 139 MEQ/L (136-145); TOTAL PROTEIN 6.9 GM/DL (6.4-8.2); TRIGLYCERIDES LEVEL 91 MG/DL (<150)
[2021-08-04 13:10] LABS: TOTAL 25(OH) VITAMIN D 27.7 NG/ML (30.0-100.0)
== END ==
LOC: M LAB 09:35
PROVIDERS: ATTEND Nurse Practitioner Adult Health
DX: Z13.1 Encounter for screening for diabetes mellitus (principal); K57.50 Diverticulosis of both small and large intestine without perforation or abscess without bleeding; E55.9 Vitamin D deficiency, unspecified; Z13.29 Encounter for screening for other suspected endocrine disorder; Z13.220 Encounter for screening for lipoid disorders; Z79.899 Other long term (current) drug therapy

== ENCOUNTER → 2021-11-10 | Outpatient (CLI) | payer MEDICARE | LOC: M WHC 13:01 | PROVIDERS: ATTEND Nurse Practitioner Adult Health | DX: Z12.31 Encounter for screening mammogram for malignant neoplasm of breast (principal) ==

== ENCOUNTER → 2022-05-21 | Outpatient (CLI) | payer MEDICARE ==
[2022-05-21 16:30] LABS: ALBUMIN 3.8 G/DL (3.2-5.2); ALKALINE PHOSPHATASE 76 U/L (46-116); ALT/SGPT 18 U/L (7.0-40); AST/SGOT 18 U/L (<34); BILIRUBIN,TOTAL 0.7 MG/DL (0.3-1.2); BLOOD UREA NITROGEN 17 MG/DL (9-23); CARBON DIOXIDE LEVEL 30 MMOL/L (20-31); CHLORIDE LEVEL 104 MMOL/L (98-107); CHOLESTEROL LEVEL 220 MG/DL (<200); CHOLESTEROL RISK RATIO 3.12 (<5); CREATININE FOR GFR 0.81 MG/DL (0.55-1.30); GLOMERULAR FILTRATION RATE > 60.0 (>32); GLUCOSE, FASTING 77 MG/DL (74-106); HDL CHOLESTEROL 70.3 MG/DL (>40); LDL CHOLESTEROL 127.9 MG/DL (<100); NON-HDL-C 149.7 MG/DL; POTASSIUM SERUM 4.5 MMOL/L (3.5-5.1); SODIUM LEVEL 139 MMOL/L (136-145); TOTAL PROTEIN 6.7 G/DL (5.7-8.2); TRIGLYCERIDES LEVEL 109 MG/DL (<150)
[2022-05-21 16:31] LABS: TOTAL 25(OH) VITAMIN D 43.7 NG/ML (20.0-100.0)
[2022-05-21 16:32] LABS: THYROID STIMULATING HORMONE 2.341 uIU/ML (0.55-4.78)
[2022-05-21 18:47] LABS: HEMOGLOBIN A1c 5.3 % (4.0-6.0)
== END ==
LOC: M PLALAB 14:13
PROVIDERS: ATTEND Nurse Practitioner Adult Health
DX: K57.50 Diverticulosis of both small and large intestine without perforation or abscess without bleeding (principal); E55.9 Vitamin D deficiency, unspecified; Z13.1 Encounter for screening for diabetes mellitus; Z13.29 Encounter for screening for other suspected endocrine disorder; Z13.220 Encounter for screening for lipoid disorders; Z79.899 Other long term (current) drug therapy

== ENCOUNTER → 2022-12-21 | Outpatient (CLI) | payer MEDICARE ==
[~2022-12-21] MED LIST changes: -OFLO3OPSO OD; +OFLO5DRO OD
[2022-12-21 16:40] LABS: HEMOGLOBIN A1c 4.7 % (4.0-6.0)
[2022-12-21 16:54] LABS: ALBUMIN 3.7 G/DL (3.2-5.2); ALKALINE PHOSPHATASE 80 U/L (46-116); ALT/SGPT 20 U/L (7.0-40); AST/SGOT 15 U/L (<34); BILIRUBIN,TOTAL 0.6 MG/DL (0.3-1.2); BLOOD UREA NITROGEN 15 MG/DL (9-23); CALCIUM LEVEL 9.1 MG/DL (8.3-10.6); CARBON DIOXIDE LEVEL 30 MMOL/L (20-31); CHLORIDE LEVEL 106 MMOL/L (98-107); CHOLESTEROL LEVEL 221 MG/DL (<200); CHOLESTEROL RISK RATIO 3.01 (<5); CREATININE FOR GFR 0.81 MG/DL (0.55-1.30); GLOMERULAR FILTRATION RATE > 60.0 (>32); GLUCOSE, FASTING 98 MG/DL (74-106); HDL CHOLESTEROL 73.3 MG/DL (>40); LDL CHOLESTEROL 129.5 MG/DL (<100); NON-HDL-C 147.7 MG/DL; POTASSIUM SERUM 4.1 MMOL/L (3.5-5.1); SODIUM LEVEL 140 MMOL/L (136-145); TOTAL PROTEIN 6.6 G/DL (5.7-8.2); TRIGLYCERIDES LEVEL 91 MG/DL (<150)
[2022-12-21 16:55] LABS: TOTAL 25(OH) VITAMIN D 44.2 NG/ML (20.0-100.0)
== END ==
LOC: M PLALAB 11:52
PROVIDERS: ATTEND Nurse Practitioner Adult Health
DX: Z13.1 Encounter for screening for diabetes mellitus (principal); Z13.220 Encounter for screening for lipoid disorders; Z13.29 Encounter for screening for other suspected endocrine disorder; E55.9 Vitamin D deficiency, unspecified; K57.50 Diverticulosis of both small and large intestine without perforation or abscess without bleeding; Z79.899 Other long term (current) drug therapy

== ENCOUNTER → 2023-05-17 | Outpatient (CLI) | payer MEDICARE | LOC: M WHC 11:14 | PROVIDERS: ATTEND Nurse Practitioner Adult Health | DX: Z12.31 Encounter for screening mammogram for malignant neoplasm of breast (principal) ==

== ENCOUNTER → 2023-08-25 | Outpatient (CLI) | payer MEDICARE ==
[2023-08-25 18:32] LABS: BASO % 0.5 % (0.0-1.0); EOS # 0.1 10^3/uL (0.0-0.5); LYMPH # 1.2 10^3/uL (1.5-5.0); LYMPH % 19.3 % (24.0-44.0); MEAN CORPUSCULAR HGB CONC 33.3 g/dl (32.0-36.5); MEAN CORPUSCULAR VOLUME 90.1 fl (80.0-96.0); MONO # 0.6 10^3/uL (0.0-0.8); MONO % 9.6 % (2.0-8.0); NEUTROPHILS # 4.2 10^3/uL (1.5-8.5); NEUTROPHILS % 68.4 % (36.0-66.0); PLATELET COUNT, AUTOMATED 246 10^3/uL (150-450); RED BLOOD COUNT 4.66 10^6/uL (4.00-5.40); WHITE BLOOD COUNT 6.1 10^3/uL (4.0-10.0)
[2023-08-25 18:56] LABS: THYROID STIMULATING HORMONE 1.759 uIU/ML (0.55-4.78)
[2023-08-25 19:00] LABS: ALBUMIN 3.7 G/DL (3.2-5.2); ALKALINE PHOSPHATASE 93 U/L (46-116); ALT/SGPT 14 U/L (7.0-40); AST/SGOT 11 U/L (<34); BILIRUBIN,TOTAL 0.8 MG/DL (0.3-1.2); BLOOD UREA NITROGEN 19 MG/DL (9-23); CALCIUM LEVEL 9.2 MG/DL (8.3-10.6); CARBON DIOXIDE LEVEL 28 MMOL/L (20-31); CHLORIDE LEVEL 103 MMOL/L (98-107); GLOMERULAR FILTRATION RATE > 60.0 (>32); GLUCOSE, FASTING 71 MG/DL (74-106); POTASSIUM SERUM 4.3 MMOL/L (3.5-5.1); SODIUM LEVEL 138 MMOL/L (136-145); TOTAL PROTEIN 6.6 G/DL (5.7-8.2)
[2023-08-25 19:02] LABS: FOLATE 16.6 NG/ML (>5.4)
[2023-08-25 19:03] LABS: VITAMIN B12 LEVEL 331 PG/ML (211-911)
[2023-08-25 19:54] LABS: FREE THYROXINE INDEX 4.1 % (1.3-4.8); T UPTAKE 34.2 % (22.5-37.0)
== END ==
LOC: M PLALAB 15:17
PROVIDERS: ATTEND Psychiatry & Neurology Neurology
DX: E53.8 Deficiency of other specified B group vitamins (principal); E07.9 Disorder of thyroid, unspecified